=== PATIENT | female | born 1955 | race Caucasian/White ===

== ENCOUNTER 2016-10-24 17:10 | Emergency (ER) | payer OTHER ==
[~2016-10-24] VITALS: Ht 160 cm; Wt 83.8 kg
[2016-10-24] MEDS ORDERED: METOPROLOL TARTRATE 50 MG TABLET ONE (17:38)
[2016-10-24 17:51] LABS: HEMATOCRIT 49.6 % (34.6-47.8); HEMOGLOBIN 16.5 g/dL (11.7-16.4); WHITE BLOOD COUNT 17.3 x10^3/uL (3.4-10)
[2016-10-24] MEDS ORDERED: SODIUM CHLORIDE FLUSH 10ML SYR IVF ONE (18:00)
[2016-10-24] MEDS ORDERED: SODIUM CHLORIDE 0.9% 1,000ML IVBOLUS ONE (18:00)
[2016-10-24] MEDS ORDERED: METOPROLOL TARTRATE 50 MG TABLET PO ONE (18:00)
[2016-10-24] MEDS ORDERED: ASPIRIN 81 MG TABLET CHEW PO ONE (18:00)
[2016-10-24 18:03] LABS: BLOOD UREA NITROGEN 27 mg/dL (7-18)
[2016-10-24 18:07] LABS: IS PT STATUS REG ER OR PRE ER? YES
[2016-10-24] MEDS ORDERED: ASPIRIN 81 MG TABLET CHEW ONE (18:14)
[2016-10-24 18:47] VITALS: BP 124/77
== END 2016-10-24 19:03 | disposition home or self-care (01) ==
LOC: ED 18:30
DX: I47.1 Supraventricular tachycardia (principal); J44.9 Chronic obstructive pulmonary disease, unspecified; I10 Essential (primary) hypertension; F17.200 Nicotine dependence, unspecified, uncomplicated
CPT/HCPCS: 36415; 71010; 80048; 82040; 84484; 85025; 93005; 96360; 99291; 99406; J7030

== ENCOUNTER → 2016-11-11 | Outpatient (CLI) | payer OTHER | END | disposition home or self-care (01) | LOC: CFH 07:24 | PROVIDERS: ATTEND Internal Medicine Cardiovascular Disease | DX: I34.8 Other nonrheumatic mitral valve disorders (principal); I51.7 Cardiomegaly; I10 Essential (primary) hypertension; J44.9 Chronic obstructive pulmonary disease, unspecified; F17.200 Nicotine dependence, unspecified, uncomplicated; Z98.61 Coronary angioplasty status | CPT/HCPCS: 78452; 93017; 93306; A9502 ==

== ENCOUNTER → 2016-12-16 | Outpatient (CLI) | payer OTHER ==
[~2016-12-16] MED LIST: CYCL5TAB PO; FLUT1BLS INH; FLUT200B INH; HYDR-3241 PO; HYDR12.58 PO; KETO15CR2 TD; NABU500T PO; NAPR1TAB21 PO; UMEC1DIS INH; ZOLP10TA PO
== END | disposition home or self-care (01) ==
LOC: STAR 10:26
PROVIDERS: ATTEND Internal Medicine Cardiovascular Disease
DX: J98.11 Atelectasis (principal); Z87.891 Personal history of nicotine dependence
CPT/HCPCS: 36415; 71020; 80053; 85025; 85610; 85730

== ENCOUNTER 2016-12-20 06:06 | Day surgery (SDC) | payer OTHER ==
[2016-12-16 10:53] VITALS: BP 126/85
[2016-12-16 11:38] LABS: BLOOD UREA NITROGEN 12 mg/dL (7-18)
[2016-12-16 11:41] LABS: ASPARTATE AMINO TRANSFERASE 20 U/L (15-37)
[2016-12-16 12:27] LABS: HEMATOCRIT 56.5 % (34.6-47.8); HEMOGLOBIN 18.5 g/dL (11.7-16.4); WHITE BLOOD COUNT 10.6 x10^3/uL (3.4-10)
[~2016-12-20] VITALS: Ht 160 cm; Wt 90.9 kg
[~2016-12-20 06:06] MED LIST changes: -CYCL5TAB PO; -FLUT200B INH; -UMEC1DIS INH
[2016-12-20] MEDS ORDERED: SODIUM CHLORIDE 0.9% 1,000 ML IV SCH (06:17)
[2016-12-20] MEDS ORDERED: FLUT200B INH (06:35)
[2016-12-20] MEDS ORDERED: NABU500T PO (06:35)
[2016-12-20] MEDS ORDERED: UMEC1DIS INH (06:35)
[2016-12-20] MEDS ORDERED: CYCL5TAB PO (06:35)
[2016-12-20] MEDS ORDERED: FENTANYL PF 250 MCG/5ML ONE (07:38)
[2016-12-20] MEDS ORDERED: MIDAZOLAM 1 MG/ML, 5ML ONE (07:38)
[2016-12-20] MEDS ORDERED: LIDOCAINE 2%, 20ML ONE (07:39)
[2016-12-20] MEDS ORDERED: PROTAMINE SULFATE 10 MG/ML, 5ML ONE (07:39)
[2016-12-20] MEDS ORDERED: ISOPROTERENOL 0.2MG/ML, 5ML ONE (07:39)
[2016-12-20] MEDS ORDERED: HEPARIN 1,000 UNITS/ML, 10ML ONE (07:39)
[2016-12-20] MEDS ORDERED: ALBUTEROL SULFATE 200 PUFFS/8.5 GR INH ONE (08:10)
[2016-12-20] MEDS ORDERED: DEXAMETHASONE 4 MG/ML, 1ML ONE (08:10)
[2016-12-20] MEDS ORDERED: PROPOFOL 10 MG/ML, 50ML ONE (08:10)
[2016-12-20] MEDS ORDERED: ONDANSETRON 2MG/ML, 2ML ONE (08:10)
[2016-12-20] MEDS ORDERED: LIDOCAINE-MPF 2% ,5ML ONE (08:10)
[2016-12-20] MEDS ORDERED: SUCCINYLCHOLINE 20 MG/ML, 10ML ONE (08:10)
[2016-12-20] MEDS ORDERED: PROPOFOL 10 MG/ML, 20ML ONE (08:10)
[2016-12-20] MEDS ORDERED: ONDANSETRON 2MG/ML, 2ML IVPush PRN (10:00)
[2016-12-20] MEDS ORDERED: OXYcodone 5 MG/5 ML ORAL.SOL UDC PO PRN (10:00)
[2016-12-20] MEDS ORDERED: EPHEDRINE 50 MG/ML, 1ML IVPush PRN (10:00)
[2016-12-20] MEDS ORDERED: ACETAMINOPHEN 325 MG TABLET PO PRN ×2 (10:00)
[2016-12-20] MEDS ORDERED: MEPERIDINE/PF 25MG/0.5ML IVPush PRN (10:00)
[2016-12-20] MEDS ORDERED: MIDAZOLAM 1 MG/ML, 2ML IV PRN (10:00)
[2016-12-20] MEDS ORDERED: HYDROmorphone 1 MG/ML, 1ML IV PRN (10:00)
[2016-12-20] MEDS ORDERED: CYCLOBENZAPRINE HCL 10 MG PO PRN (10:00)
[2016-12-20] MEDS ORDERED: FENTANYL PF 100 MCG/2ML IV PRN (10:00)
[2016-12-20] MEDS ORDERED: ZOLPIDEM 10MG TABLET PO PRN (10:00)
[2016-12-20] MEDS ORDERED: ALBUTEROL/IPRATROPIUM 2.5MG/0.5MG, 3 ML NPPB PRN (10:00)
[2016-12-20] MEDS ORDERED: KETOCONAZOLE CRM 2%, 15GM HOMETP PRN (10:00)
[2016-12-21] MEDS ORDERED: FLUTICASONE FUROATE 200MCG/INH INH SCH (09:00)
[2016-12-21] MEDS ORDERED: NABUMETONE 500 MG TABLET PO SCH (09:00)
[2016-12-21] MEDS ORDERED: TEMPLATE NON-FORMULARY MED. (Umeclidinium Brm/Vilanterol Tr (Anoro Ellipta 62.5-25 Mcg Inh INH SCH (09:00)
== END 2016-12-20 14:11 ==
LOC: CACL 06:06
PROVIDERS: ATTEND Internal Medicine Cardiovascular Disease
DX: I47.1 Supraventricular tachycardia (principal); I10 Essential (primary) hypertension; Z72.0 Tobacco use
CPT/HCPCS: 93613; 93621; 93623; 93653; C1730; C1894; C2630; J0330; J1100; J2250; J2405; J2704; J3010; J3490; 36415; 71020; 80053; 85025; 85610; 85730; J1644; J2720

== ENCOUNTER 2017-05-16 09:23 | Inpatient (IN) | payer OTHER ==
[~2017-05-16] VITALS: Ht 157.5 cm; Wt 89.1 kg
[~2017-05-16 09:23] MED LIST changes: +CYCL5TAB PO; +FLUT200B INH; +UMEC1DIS INH
[2017-05-16] MEDS ORDERED: methylPREDNISolone SOD SUCC 125 MG/2 ML IVP ONE (10:00)
[2017-05-16] MEDS ORDERED: ALBUTEROL/IPRATROPIUM 2.5MG/0.5MG, 3 ML NPPB ONE (10:00)
[2017-05-16] MEDS ORDERED: SODIUM CHLORIDE FLUSH 10ML SYR IVF ONE (10:00)
[2017-05-16] MEDS ORDERED: ALBUTEROL/IPRATROPIUM 2.5MG/0.5MG, 3 ML ONE (10:14)
[2017-05-16] MEDS ORDERED: methylPREDNISolone SOD SUCC 125 MG/2 ML ONE (10:18)
[2017-05-16 10:31] LABS: BASOPHILS # (AUTO) 0.07 x10^3/uL (0-0.1); BASOPHILS % (AUTO) 1 % (0-1); EOSINOPHILS # (AUTO) 0.11 x10^3/uL (0-0.4); EOSINOPHILS % (AUTO) 1 % (1-7); LYMPHOCYTES # (AUTO) 1.94 x10^3/uL (1-3.4); LYMPHOCYTES % (AUTO) 18 % (22-44); MD NO; MEAN CORPUSCULAR HGB CONC 32.1 g/dL (32.4-35.8); MEAN CORPUSCULAR VOLUME 93.7 fL (80-100); MONOCYTES % (AUTO) 12 % (2-9); NEUTROPHILS # (AUTO) 7.37 x10^3/uL (1.8-6.8); NEUTROPHILS % (AUTO) 68 % (42-75); PLATELET COUNT 215 x10^3/uL (130-400); RED BLOOD COUNT 5.56 x10^6/uL (3.82-5.3)
[2017-05-16 10:37] LABS: INTERNATIONAL NORMALIZED RATIO 1.11 (0.93-1.1); PROTHROMBIN TIME 11.5 Seconds (9.6-11.5)
[2017-05-16 10:41] LABS: ALANINE AMINOTRANSFERASE 65 U/L (12-78); ALBUMIN 2.8 g/dL (3.4-5.0); ANION GAP 4 mmol/L (5-15); CALCIUM 8.1 mg/dL (8.5-10.1); CHLORIDE 98 mmol/L (98-107)
[2017-05-16 10:45] LABS: ALKALINE PHOSPHATASE 70 U/L (45-117); BILIRUBIN,TOTAL 0.4 mg/dL (0.2-1.0); TOTAL PROTEIN 5.7 g/dL (6.4-8.2); TROPONIN I < 0.015 ng/mL (0.000-0.045)
[2017-05-16] MEDS ORDERED: ALBU8.5H8 INH (11:07)
[2017-05-16 11:49] VITALS: BP 151/91
[2017-05-16] MEDS ORDERED: BISACODYL 10 MG SUPP PR PRN (14:00)
[2017-05-16] MEDS ORDERED: ONDANSETRON 2MG/ML, 2ML IVPush PRN (14:00)
[2017-05-16] MEDS ORDERED: hydrALAzine 20 MG/ML, 1ML IVPush PRN (14:00)
[2017-05-16] MEDS ORDERED: POLYETHYLENE GLYCOL 17 GM PACKET PO PRN (14:00)
[2017-05-16] MEDS ORDERED: ENALAPRILAT 1.25 MG/ML, 2ML IVPush PRN (14:00)
[2017-05-16] MEDS ORDERED: ACETAMINOPHEN 325 MG TABLET PO PRN (14:00)
[2017-05-16] MEDS ORDERED: HYDROcodone/APAP 5/325 TABLET PO PRN (14:00)
[2017-05-16] MEDS: ALBUTEROL/IPRATROPIUM 2.5MG/0.5MG, 3 ML NPPB SCH ×2 (14:13→18:41)
[2017-05-16 14:28] VITALS: BP 142/89
[2017-05-16] MEDS: methylPREDNISolone SOD SUCC 125 MG/2 ML IVPush SCH ×2 (15:34→20:07)
[2017-05-16] MEDS: CEFTRIAXONE PMX 2GM/50ML 50 ML IV SCH (15:34)
[2017-05-16 19:30] VITALS: BP 120/66
[2017-05-16] MEDS: DOXYCYCLINE 100MG TABLET PO SCH (20:07)
[2017-05-16] MEDS: ENOXAPARIN 40 MG/0.4 ML SQ SCH (20:08)
[2017-05-16] MEDS: NICOTINE 21 MG/24 HR PATCH.TD24 TD SCH (20:08)
[2017-05-16] MEDS: LISINOPRIL 10 MG TABLET PO SCH (20:09)
[2017-05-16] MEDS: ZOLPIDEM 10MG TABLET PO PRN (22:34)
[2017-05-17] MEDS: methylPREDNISolone SOD SUCC 125 MG/2 ML IVPush SCH ×3 (02:19→15:21)
[2017-05-17 02:23] VITALS: BP 144/74
[2017-05-17 05:01] LABS: MEAN CORPUSCULAR HEMOGLOBIN 29.6 pg (27.0-34.8); MEAN CORPUSCULAR HGB CONC 31.7 g/dL (32.4-35.8); MEAN CORPUSCULAR VOLUME 93.5 fL (80-100); MEAN PLATELET VOLUME 9.2 fL (7.4-10.4); PLATELET COUNT 199 x10^3/uL (130-400); RED BLOOD COUNT 5.52 x10^6/uL (3.82-5.3)
[2017-05-17 05:13] LABS: ANION GAP 5 mmol/L (5-15); CALCIUM 7.9 mg/dL (8.5-10.1); CHLORIDE 100 mmol/L (98-107)
[2017-05-17 05:26] LABS: CREATININE 0.54 mg/dL (0.55-1.02); THYROID STIMULATING HORMONE 0.374 mIU/L (0.358-3.740)
[2017-05-17 06:04] LABS: MD YES
[2017-05-17 06:05] LABS: LYMPH#(MANUAL) 0.41 x10^3/uL (1-3.4); LYMPHS% (MANUAL) 4 % (22-44); MONOS#(MANUAL) 0.31 x10^3/uL (0.3-2.7); MONOS% (MANUAL) 3 % (2-9); SEG#(MANUAL) 9.58 x10^3/uL (1.8-6.8); SEGS% (MANUAL) 93 % (42-75)
[2017-05-17 06:06] LABS: <PLATELET ESTIMATE> ADEQUATE; <PLT MORPHOLOGY> NORMAL PLT MORPH; ANISOCYTOSIS 1+; POLYCHROMASIA 1+
[2017-05-17 08:02] VITALS: BP 126/61
[2017-05-17] MEDS: ALBUTEROL/IPRATROPIUM 2.5MG/0.5MG, 3 ML NPPB SCH ×4 (08:10→18:50)
[2017-05-17] MEDS: ASPIRIN 81 MG TABLET EC PO SCH (08:24)
[2017-05-17] MEDS: DOXYCYCLINE 100MG TABLET PO SCH ×2 (08:24→19:38)
[2017-05-17] MEDS: LISINOPRIL 10 MG TABLET PO SCH ×3 (08:24→19:41)
[2017-05-17 09:50] LABS: TROPONIN I < 0.015 ng/mL (0.000-0.045)
[2017-05-17 14:13] VITALS: BP 117/69
[2017-05-17] MEDS: CEFTRIAXONE PMX 2GM/50ML 50 ML IV SCH (15:25)
[2017-05-17 19:30] VITALS: BP 134/67
[2017-05-17] MEDS: FUROSEMIDE 20 MG/2 ML IV SCH (19:36)
[2017-05-17] MEDS: methylPREDNISolone SOD SUCC 40 MG/ML IVPush SCH (19:37)
[2017-05-17] MEDS: POTASSIUM CHLORIDE 20 MEQ TAB.ER.PRT PO SCH (19:37)
[2017-05-17] MEDS: NICOTINE 21 MG/24 HR PATCH.TD24 TD SCH (19:38)
[2017-05-17] MEDS: ENOXAPARIN 40 MG/0.4 ML SQ SCH (19:38)
[2017-05-17] MEDS: ZOLPIDEM 10MG TABLET PO PRN (22:55)
[2017-05-17] MEDS: DOCUSATE 100 MG CAPSULE PO PRN (23:00)
[2017-05-18 02:06] VITALS: BP 95/58
[2017-05-18] MEDS: methylPREDNISolone SOD SUCC 40 MG/ML IVPush SCH ×4 (02:06→18:04)
[2017-05-18 05:38] LABS: ANION GAP 2 mmol/L (5-15); CALCIUM 8.1 mg/dL (8.5-10.1); CHLORIDE 101 mmol/L (98-107); CREATININE 0.53 mg/dL (0.55-1.02)
[2017-05-18] MEDS: ASPIRIN 81 MG TABLET EC PO SCH ×2 (06:00→07:24)
[2017-05-18 07:07] VITALS: BP 108/66
[2017-05-18] MEDS: FUROSEMIDE 20 MG/2 ML IV SCH ×2 (09:56→16:30)
[2017-05-18] MEDS: DOXYCYCLINE 100MG TABLET PO SCH ×2 (09:59→20:18)
[2017-05-18] MEDS: ALBUTEROL/IPRATROPIUM 2.5MG/0.5MG, 3 ML NPPB SCH ×2 (12:05→18:44)
[2017-05-18 14:46] VITALS: BP 133/75
[2017-05-18] MEDS: CEFTRIAXONE PMX 2GM/50ML 50 ML IV SCH (16:20)
[2017-05-18] MEDS: POTASSIUM CHLORIDE 20 MEQ TAB.ER.PRT PO SCH (16:31)
[2017-05-18 19:34] VITALS: BP 172/94
[2017-05-18] MEDS: ENOXAPARIN 40 MG/0.4 ML SQ SCH (20:17)
[2017-05-18] MEDS: NICOTINE 21 MG/24 HR PATCH.TD24 TD SCH (20:18)
[2017-05-18] MEDS: DOCUSATE 100 MG CAPSULE PO PRN (20:19)
[2017-05-18] MEDS: LISINOPRIL 10 MG TABLET PO SCH (21:00)
[2017-05-18] MEDS: ZOLPIDEM 10MG TABLET PO PRN (23:26)
[2017-05-19 02:28] VITALS: BP 106/63
[2017-05-19] MEDS: ASPIRIN 81 MG TABLET EC PO SCH (05:43)
[2017-05-19 07:12] LABS: BASOPHILS # (AUTO) 0.11 x10^3/uL (0-0.1); BASOPHILS % (AUTO) 1 % (0-1); EOSINOPHILS % (AUTO) 0 % (1-7); LYMPHOCYTES # (AUTO) 1.24 x10^3/uL (1-3.4); LYMPHOCYTES % (AUTO) 7 % (22-44); MD SCAN; MEAN CORPUSCULAR HEMOGLOBIN 29.1 pg (27.0-34.8); MEAN CORPUSCULAR HGB CONC 30.7 g/dL (32.4-35.8); MEAN CORPUSCULAR VOLUME 94.7 fL (80-100); MEAN PLATELET VOLUME 9.2 fL (7.4-10.4); MONOCYTES # (AUTO) 1.32 x10^3/uL (0.2-0.8); MONOCYTES % (AUTO) 8 % (2-9); NEUTROPHILS # (AUTO) 14.58 x10^3/uL (1.8-6.8); NEUTROPHILS % (AUTO) 85 % (42-75); PLATELET COUNT 230 x10^3/uL (130-400); RED BLOOD COUNT 5.85 x10^6/uL (3.82-5.3)
[2017-05-19 07:19] LABS: ANION GAP 3 mmol/L (5-15); CALCIUM 8.6 mg/dL (8.5-10.1); CHLORIDE 94 mmol/L (98-107); CREATININE 0.66 mg/dL (0.55-1.02)
[2017-05-19 07:46] VITALS: BP 150/87
[2017-05-19] MEDS: DOXYCYCLINE 100MG TABLET PO SCH (08:41)
[2017-05-19] MEDS: methylPREDNISolone SOD SUCC 40 MG/ML IVPush SCH (08:41)
[2017-05-19] MEDS: LISINOPRIL 10 MG TABLET PO SCH (08:41)
[2017-05-19] MEDS: ALBUTEROL/IPRATROPIUM 2.5MG/0.5MG, 3 ML NPPB SCH (09:46)
[2017-05-19] MEDS ORDERED: PRED20TA PO (12:21)
[2017-05-19] MEDS ORDERED: DOXY100T PO (12:21)
[2017-05-19] MEDS ORDERED: ASPI-621 PO (12:21)
[2017-05-19] MEDS ORDERED: LISI-167 PO (12:21)
[2017-05-19] MEDS ORDERED: CEFD300C37 PO (12:21)
[2017-05-19] MEDS ORDERED: NICO-487 TD (12:21)
[2017-05-19] MEDS ORDERED: FURO-93 PO (12:23)
[2017-05-19] MEDS: CEFTRIAXONE PMX 2GM/50ML 50 ML IV SCH (15:17)
[2017-05-19 15:18] VITALS: BP 143/79
== END 2017-05-19 17:00 | disposition home or self-care (01) | DRG 291 ==
LOC: ED 10:58 → 5SO 10:59 → ED 11:21 → 5SO 11:47 → DCLOUNGE 05-19 16:04
PROVIDERS: ADMIT Family Medicine; ATTEND Family Medicine
DX: I11.0 Hypertensive heart disease with heart failure (principal); J96.01 Acute respiratory failure with hypoxia; J44.1 Chronic obstructive pulmonary disease with (acute) exacerbation; E66.2 Morbid (severe) obesity with alveolar hypoventilation; I07.1 Rheumatic tricuspid insufficiency; D45 Polycythemia vera; I50.31 Acute diastolic (congestive) heart failure; D72.829 Elevated white blood cell count, unspecified; I25.10 Atherosclerotic heart disease of native coronary artery without angina pectoris; F17.210 Nicotine dependence, cigarettes, uncomplicated; B96.89 Other specified bacterial agents as the cause of diseases classified elsewhere; Z66 Do not resuscitate; Z85.41 Personal history of malignant neoplasm of cervix uteri; Z85.42 Personal history of malignant neoplasm of other parts of uterus; Z90.710 Acquired absence of both cervix and uterus; Z95.5 Presence of coronary angioplasty implant and graft; Z79.82 Long term (current) use of aspirin; Z79.899 Other long term (current) drug therapy; Z71.6 Tobacco abuse counseling; Z68.35 Body mass index [BMI] 35.0-35.9, adult
CPT/HCPCS: 36415; 71045; 80048; 80053; 83735; 83880; 84100; 84132; 84443; 84484; 85025; 85610; 85730; 93005; 93306; 94640; 96374; J0696; J1650; J7620; J1940; J2920; J2930

== ENCOUNTER → 2018-02-23 | Outpatient (CLI) | payer OTHER ==
[~2018-02-23] MED LIST changes: +ALBU8.5H8 INH; +ASPI81TA45 PO; +CEFD300C37 PO; +DOXY100T PO; +FURO-93 PO; -HYDR12.58 PO; +HYDROCHLOROTH12.5 MG PO; +LISI-167 PO; +NICO-487 TD; +PRED20TA PO
== END | disposition home or self-care (01) ==
LOC: CFH 15:22
PROVIDERS: ATTEND Nurse Practitioner Family
DX: Z12.2 Encounter for screening for malignant neoplasm of respiratory organs (principal); I25.10 Atherosclerotic heart disease of native coronary artery without angina pectoris; J98.11 Atelectasis; N28.1 Cyst of kidney, acquired; F17.200 Nicotine dependence, unspecified, uncomplicated
CPT/HCPCS: G0297

== ENCOUNTER → 2018-06-05 | Outpatient (CLI) | payer OTHER | END | disposition home or self-care (01) | LOC: CFH 14:23 | PROVIDERS: ATTEND Family Medicine | DX: Z12.31 Encounter for screening mammogram for malignant neoplasm of breast (principal) | CPT/HCPCS: 77067 ==

== ENCOUNTER → 2019-04-30 | Outpatient (CLI) | payer MEDICARE ==
[~2019-04-30] MED LIST changes: +KETO15CR17 TD; -KETO15CR2 TD
== END | disposition home or self-care (01) ==
LOC: RAD 14:26
PROVIDERS: ATTEND Physician Assistant
DX: M25.551 Pain in right hip (principal)

== ENCOUNTER 2019-08-23 17:46 | Emergency (ER) | payer MEDICARE ==
[~2019-08-23] VITALS: Ht 157.5 cm; Wt 90.9 kg
[2019-08-23] MEDS ORDERED: SODIUM CHLORIDE 0.9% 1,000 ML IV ONE (18:25)
[2019-08-23] MEDS ORDERED: MORPHINE SULFATE 4 MG/ML, 1ML IVPush PRN (18:30)
[2019-08-23] MEDS ORDERED: ONDANSETRON 2MG/ML, 2ML IVPush ONE (18:30)
[2019-08-23] MEDS ORDERED: SODIUM CHLORIDE FLUSH 10ML SYR IVF ONE (18:30)
[2019-08-23] MEDS ORDERED: ONDANSETRON 2MG/ML, 2ML ONE (18:47)
[2019-08-23] MEDS ORDERED: MORPHINE SULFATE 4 MG/ML, 1ML ONE (18:47)
[2019-08-23 19:16] LABS: MEAN CORPUSCULAR HEMOGLOBIN 31.4 pg (27.0-34.8); MEAN CORPUSCULAR HGB CONC 31.9 g/dL (32.4-35.8); MEAN CORPUSCULAR VOLUME 98.2 fL (80-100); MEAN PLATELET VOLUME 8.8 fL (7.4-10.4); PLATELET COUNT 470 x10^3/uL (130-400); RED BLOOD COUNT 3.94 x10^6/uL (3.82-5.3)
[2019-08-23 19:36] LABS: ALANINE AMINOTRANSFERASE 12 U/L (12-78); ALBUMIN 3.2 g/dL (3.4-5.0); ANION GAP 7 mmol/L (5-15); CALCIUM 9.9 mg/dL (8.5-10.1); CHLORIDE 101 mmol/L (98-107); CREATININE 0.61 mg/dL (0.55-1.02)
[2019-08-23 19:40] LABS: ALKALINE PHOSPHATASE 226 U/L (45-117); BILIRUBIN,TOTAL 0.4 mg/dL (0.2-1.0); TOTAL PROTEIN 7.2 g/dL (6.4-8.2); TROPONIN I < 0.015 ng/mL (0.000-0.045)
[2019-08-23 19:47] LABS: MD YES
[2019-08-23 19:48] LABS: BAND#(MANUAL) 2.91 x10^3/uL; BANDS%(MANUAL) 6 % (0-7); LYMPH#(MANUAL) 3.88 x10^3/uL (1-3.4); LYMPHS% (MANUAL) 8 % (22-44); MONOS#(MANUAL) 2.91 x10^3/uL (0.3-2.7); MONOS% (MANUAL) 6 % (2-9); SEGS% (MANUAL) 80 % (42-75)
[2019-08-23 19:49] LABS: <PLATELET ESTIMATE> INCREASED; LARGE PLATELETS 1+; POLYCHROMASIA 1+
[2019-08-23] MEDS ORDERED: OMNIPAQUE 350 MG/ML, 75ML BOTTLE ONE (20:26)
[2019-08-23 20:29] VITALS: BP 150/73
== END 2019-08-23 21:31 | disposition home or self-care (01) ==
LOC: ED 21:00
DX: S20.212A Contusion of left front wall of thorax, initial encounter (principal); D72.829 Elevated white blood cell count, unspecified; R07.9 Chest pain, unspecified; R94.31 Abnormal electrocardiogram [ECG] [EKG]; I11.0 Hypertensive heart disease with heart failure; I50.9 Heart failure, unspecified; E11.9 Type 2 diabetes mellitus without complications; E78.5 Hyperlipidemia, unspecified; J44.9 Chronic obstructive pulmonary disease, unspecified; Z87.891 Personal history of nicotine dependence; Z90.710 Acquired absence of both cervix and uterus; Z85.830 Personal history of malignant neoplasm of bone; W18.30XA Fall on same level, unspecified, initial encounter; Y93.89 Activity, other specified; Y92.239 Unspecified place in hospital as the place of occurrence of the external cause; Y99.8 Other external cause status
CPT/HCPCS: 36415; 70450; 71260; 72125; 80053; 83880; 84484; 85025; 93005; 96374; 96375; 99285; J2270; J2405; J7030; Q9967

== ENCOUNTER → 2019-10-16 | Outpatient (CLI) | payer MEDICARE | END | disposition home or self-care (01) | LOC: ROC 07:18 | PROVIDERS: ATTEND Radiology Radiation Oncology | DX: C79.82 Secondary malignant neoplasm of genital organs (principal); C56.9 Malignant neoplasm of unspecified ovary | CPT/HCPCS: 99214; G0463 ==